=== PATIENT | male | born 1950 | race Caucasian/White ===

== ENCOUNTER 2018-12-24 10:47 | Day surgery (SDC) | payer MEDICARE, BC ==
[~2018-12-24] VITALS: Ht 172.7 cm; Wt 80.7 kg
[~2018-12-24 10:47] MED LIST: ESOM20CA PO; FLEC100T PO; [UNRECOGNIZED DRUG - OTHER] PO
[2018-12-24] MEDS ORDERED: LACTATED RINGERS 1,000 ML IV SCH (11:15)
[2018-12-24 11:39] VITALS: BP 132/80
[2018-12-24] MEDS ORDERED: BUPIVACAINE/PF 0.5% ONE (12:07)
[2018-12-24] MEDS ORDERED: FENTANYL PF 100 MCG/2ML ONE (12:51)
[2018-12-24] MEDS ORDERED: MIDAZOLAM 1 MG/ML, 2ML ONE (12:51)
[2018-12-24] MEDS ORDERED: PROPOFOL 50 ML ONE (12:54)
[2018-12-24] MEDS ORDERED: MORPHINE SULFATE 4 MG/ML, 1ML IVPush PRN (13:00)
[2018-12-24] MEDS ORDERED: HYDROmorphone 2 MG/ML, 1ML IVPush PRN (13:00)
[2018-12-24] MEDS ORDERED: FENTANYL PF 100 MCG/2ML IV PRN (13:00)
[2018-12-24] MEDS ORDERED: ACETAMINOPHEN 325 MG TABLET PO PRN (13:00)
[2018-12-24] MEDS ORDERED: PROMETHAZINE 25 MG/ML, 1ML IV PRN (13:00)
[2018-12-24] MEDS ORDERED: LABETALOL 5 MG/ML SYRINGE IV PRN (13:00)
[2018-12-24] MEDS ORDERED: PROMETHAZINE 12.5 MG SUPP PR PRN (13:00)
[2018-12-24] MEDS ORDERED: MEPERIDINE/PF 25MG/0.5ML IVPush PRN (13:00)
[2018-12-24] MEDS ORDERED: ONDANSETRON 2MG/ML, 2ML IV PRN (13:00)
[2018-12-24] MEDS ORDERED: hydrALAzine 20 MG/ML, 1ML IV PRN (13:00)
[2018-12-24] MEDS ORDERED: OXYcodone 5 MG/5 ML ORAL.SOL UDC PO PRN (13:00)
[2018-12-24] MEDS ORDERED: PROMETHAZINE 25 MG SUPP PR PRN (13:00)
[2018-12-24] MEDS ORDERED: SCOPOLAMINE PATCH, 1.5MG PATCH.TD72 TD PRN (13:00)
[2018-12-24] MEDS ORDERED: ONDANSETRON ODT 8 MG PO PRN (13:00)
[2018-12-24] MEDS ORDERED: PROMETHAZINE 25 MG/ML, 1ML IM PRN ×2 (13:00)
[2018-12-24] MEDS ORDERED: LIDOCAINE 1%, 20ML ONE (14:24)
== END 2018-12-24 18:00 | disposition home or self-care (01) ==
LOC: OUT 10:47
PROVIDERS: ATTEND Podiatrist Foot & Ankle Surgery
DX: M20.21 Hallux rigidus, right foot (principal); I48.91 Unspecified atrial fibrillation; Z85.828 Personal history of other malignant neoplasm of skin; Z88.0 Allergy status to penicillin; Z91.040 Latex allergy status
CPT/HCPCS: 28291; C1763; J2250; J2704; J3010; J3490; J7120